=== PATIENT | female | born 1975 | race Caucasian/White ===

== ENCOUNTER 2023-03-14 15:35 | Emergency (ER) | payer MEDICAID ==
[~2023-03-14] VITALS: Ht 154.9 cm; Wt 49.9 kg
[2023-03-14 15:38] VITALS: BP 125/72; PULSE 92; RESP 16; TEMP 98.7; O2SAT 98
--- NOTE | 2023-03-14 15:55 | NUR ---
AT EVALUATING THE PT. PT HAD ATTEMPTED TO OBTAIN UA SAMPLE, BUT DROPPED SAMPLE IN THE TOILET.
[2023-03-14 16:01] VITALS: O2SAT 98
--- NOTE | 2023-03-14 16:01 | NUR ---
47 YO F BIBA C/O NAUSEA, VOMITING ONCE AFTER PLACING A GREEN PATCH SHE FOUND IN HER NEIGHBORS MAILBOX THIS MORNING. PT STATES SHE ASSUMES IT IS FENTANYL. PT DENIES DIZZINESS, CABRAL, DIARRHEA, CHILLS, FLU SYMPTOMS. PT A/OX4. NAD NOTED, SAFETY MAINTAINED.
--- NOTE | 2023-03-14 16:17 | NUR ---
PT ENDORSED TO [facility] SHARMA. LAB AT BS DRAWING PT.
--- NOTE | 2023-03-14 16:18 | NUR ---
CONTINUATION OF CARE. LAB AT BEDSIDE.
--- NOTE | 2023-03-14 16:25 | NUR ---
PT REFUSED TO GIVE URINE. STATES SHE IS GOING HOME.
[2023-03-14 16:32] LABS: BASOPHILS # (AUTO) 0.1 K/uL (0.00-0.22); BASOPHILS % (AUTO) 0.8 % (0.0-2.0); EOSINOPHILS # (AUTO) 0.1 K/uL (0-0.4); EOSINOPHILS % (AUTO) 0.7 % (0.0-4.0); HEMATOCRIT 33.8 % (36-48); HEMOGLOBIN 11.1 g/dL (12.0-16.0); LYMPHOCYTES # (AUTO) 2.1 K/uL (2.5-16.5); LYMPHOCYTES % (AUTO) 18.2 % (20.5-51.1); MEAN CORPUSCULAR HEMOGLOBIN 26 pg (27-31); MEAN CORPUSCULAR HGB CONC 33 g/dL (33-37); MEAN CORPUSCULAR VOLUME 78.8 fL (80-94); MONOCYTES # (AUTO) 0.5 K/uL (0.8-1.0); MONOCYTES % (AUTO) 4.6 % (1.7-9.3); NEUTROPHILS # (AUTO) 8.8 K/uL (1.8-7.7); NEUTROPHILS % (AUTO) 75.7 % (42.2-75.2); PLATELET COUNT (AUTO) 277 K/uL (140-450); RED BLOOD CELL COUNT(AUTO) 4.29 MIL/uL (4.20-5.40); RED CELL DISTRIBUTION WIDTH 15.1 % (11.6-13.7); WHITE BLOOD COUNT (AUTO) 11.6 K/uL (4.8-10.8)
--- NOTE | 2023-03-14 16:54 | NUR ---
PT REQUESTING FOR FOOD , OK FOR SANDWISH AND WATER.
[2023-03-14 16:59] LABS: ALBUMIN 4.2 g/dL (3.4-5.0); ANION GAP 14.7 (8-16); CARBON DIOXIDE 23.6 mmol/L (21-32); CREATININE 0.8 mg/dL (0.6-1.3); POTASSIUM 3.3 mmol/L (3.5-5.1); TOTAL BILIRUBIN 0.6 mg/dL (0.0-1.0)
--- NOTE | 2023-03-14 17:18 | NUR ---
PT WALKING AROUND ED RECORDING, INSTRUCTED TO STOP RECORDING AND RE-ORIENT HER TO BED 5. PT STATES SHE WANTS TO GO HOME. AWARE.
--- NOTE | 2023-03-14 17:19 | NUR ---
PT CONTINUES TO REFUSE TO GIVE URINE. STATES HER FRIEND IRIS IS HERE TO PICK HER UP.
--- NOTE | 2023-03-14 17:32 | NUR ---
Patient discharged with v/s stable. Written and verbal after care instructions given and explained. Patient verbalized understanding. Ambulatory with steady gait. All questions addressed prior to discharge. Advised to follow up with PMD.
== END 2023-03-14 17:32 | disposition home or self-care (01) ==
LOC: MED 15:35
DX: R53.81 Other malaise (principal); Z85.89 Personal history of malignant neoplasm of other organs and systems
CPT/HCPCS: 36415; 80053; 83690; 85025; 99283